=== PATIENT | male | born 1995 | race Caucasian/White ===

== ENCOUNTER 2019-10-17 11:50 | Emergency (ER) | payer BC ==
[~2019-10-17] VITALS: Ht 185.4 cm; Wt 86.4 kg
[2019-10-17 11:59] VITALS: BP 174/71; TEMP 97.4
[2019-10-17 12:14] LABS: COLLECTION METHOD CLEAN CATCH
[2019-10-17 12:29] LABS: ALANINE AMINOTRANSFERASE 24 U/L (4-49); ALBUMIN 5.2 gm/dL (3.5-5.0); ALKALINE PHOSPHATASE 71 U/L (50-136); ANION GAP 10 mmol/L (7-16); AST,SGOT 29 U/L (15-37); BILIRUBIN,TOTAL 1.4 mg/dL (0.0-1.0); BLOOD UREA NITROGEN 10 mg/dL (9-20); CARBON DIOXIDE 28 mmol/L (22-30); CHLORIDE 101 mmol/L (98-107); CREATININE, serum 0.99 (0.66-1.25); GLUCOSE 114 mg/dL (74-106); LIPASE 119 U/L (23-300); POTASSIUM 3.7 mmol/L (3.4-5.0); SODIUM 139 mmol/L (137-145); TOTAL PROTEIN 8.6 gm/dL (6.4-8.2)
[2019-10-17 12:37] LABS: C-REACTIVE PROTEIN < 0.5 mg/dL (0.0-0.9)
[2019-10-17 12:39] LABS: BASO % 0.5 % (0.0-2.0); EOS # 0.3 (0.0-0.7); EOS % 3.9 % (0-4.0); GRAN # 3.9 (1.4-6.5); GRAN % 59.7 % (42.2-75.2); HEMATOCRIT 48.6 % (42.0-52.0); HEMOGLOBIN 17.4 g/dl (13.5-18.0); LYMPH # 1.8 (1.2-3.4); LYMPH % 28.3 % (20.0-51.0); MEAN CELL VOLUME 89 fl (80.0-100.0); MEAN CORPUSCULAR HEMOGLOBIN 32 pg (27.0-31.0); MEAN CORPUSCULAR HGB CONC 36 g/dl (33.0-37.0); MEAN PLATELET VOLUME 9.1 fl (7.4-10.4); MONO # 0.5 (0.1-0.6); MONO % 7.3 % (1.7-9.3); PLATELET COUNT 342 K/mm3 (130-400); RED BLOOD COUNT 5.49 M/mm3 (4.20-5.60); REDCELL DISTRIBUTION WIDTH-CV 11.8 % (11.5-14.5)
[2019-10-17 12:46] LABS: MUCOUS Present /lpf; SQUAMOUS EPITHELIAL 0-2 /hpf; URINE BACTERIA Rare /hpf
[2019-10-17 12:47] LABS: URINE APPEARANCE Clear
[2019-10-17 12:49] LABS: URINE COLOR Red
[2019-10-17] MEDS ORDERED: NORCO 325 MG-51 TAB PO (13:24)
[2019-10-17 13:41] VITALS: PULSE 68
== END 2019-10-17 13:48 | disposition home or self-care (01) ==
LOC: COL.ER 11:50
PROVIDERS: Family Medicine
DX: N20.0 Calculus of kidney (principal)
CPT/HCPCS: J1170; J1885; J2405; J7120

== ENCOUNTER 2020-05-10 15:10 | Emergency (ER) | payer BC ==
[~2020-05-10] VITALS: Ht 188 cm; Wt 88.6 kg
[~2020-05-10 15:10] MED LIST: NORCO 325 MG-51 TAB PO
[2020-05-10 15:32] VITALS: BP 148/105; TEMP 97.9
[2020-05-10 15:36] LABS: COLLECTION METHOD CLEAN CATCH
[2020-05-10 15:52] LABS: MUCOUS Present /lpf; PH 5 (5-8); SQUAMOUS EPITHELIAL 0-2 /hpf; URINE APPEARANCE Clear; URINE BACTERIA None Seen /hpf; URINE BILIRUBIN Negative (NEGATIVE); URINE BLOOD 1+ (NEGATIVE); URINE COLOR Amber; URINE GLUCOSE 1+ (NEGATIVE); URINE KETONE Negative (NEGATIVE); URINE LEUKOCYTE ESTERASE Negative (NEGATIVE); URINE NITRATE Positive (NEGATIVE); URINE PROTEIN(semi-quant) 2+ (NEGATIVE); URINE RBC 20-50 /hpf; URINE UROBILINOGEN >=4.0 mg/dL (NEGATIVE)
[2020-05-10 15:55] LABS: BASO % 0.5 % (0.0-2.0); EOS # 0.2 (0.0-0.7); EOS % 2.5 % (0-4.0); GRAN # 5.2 (1.4-6.5); GRAN % 64.5 % (42.2-75.2); HEMATOCRIT 45.7 % (42.0-52.0); HEMOGLOBIN 16.5 g/dl (13.5-18.0); LYMPH % 24.2 % (20.0-51.0); MEAN CELL VOLUME 87 fl (80.0-100.0); MEAN CORPUSCULAR HEMOGLOBIN 31 pg (27.0-31.0); MEAN CORPUSCULAR HGB CONC 36 g/dl (33.0-37.0); MEAN PLATELET VOLUME 8.5 fl (7.4-10.4); MONO # 0.7 (0.1-0.6); MONO % 8.1 % (1.7-9.3); PLATELET COUNT 332 K/mm3 (130-400); RED BLOOD COUNT 5.25 M/mm3 (4.20-5.60); REDCELL DISTRIBUTION WIDTH-CV 11.3 % (11.5-14.5)
[2020-05-10 16:06] LABS: ALANINE AMINOTRANSFERASE 22 U/L (4-49); ALKALINE PHOSPHATASE 61 U/L (50-136); ANION GAP 9 mmol/L (7-16); AST,SGOT 25 U/L (15-37); BLOOD UREA NITROGEN 12 mg/dL (9-20); CALCIUM 10.1 mg/dL (8.4-10.2); CARBON DIOXIDE 28 mmol/L (22-30); CHLORIDE 102 mmol/L (98-107); CREATININE, serum 1.07 (0.66-1.25); GLUCOSE 107 mg/dL (74-106); LIPASE 78 U/L (23-300); POTASSIUM 4.1 mmol/L (3.4-5.0); SODIUM 139 mmol/L (137-145); TOTAL PROTEIN 8.1 gm/dL (6.4-8.2)
[2020-05-10 16:07] LABS: C-REACTIVE PROTEIN < 0.5 mg/dL (0.0-0.9)
[2020-05-10] MEDS ORDERED: NORCO 325 MG-51 TAB PO (16:35)
[2020-05-10] MEDS ORDERED: ZOFRAN 4MG T4 MG/TAB PO (16:35)
[2020-05-10] MEDS ORDERED: CEPHALEXIN500 M1 PO (16:35)
[2020-05-10 17:28] VITALS: PULSE 86
== END 2020-05-10 17:28 | disposition home or self-care (01) ==
LOC: COL.ER 15:10
PROVIDERS: Emergency Medicine
DX: N13.2 Hydronephrosis with renal and ureteral calculous obstruction (principal); K57.90 Diverticulosis of intestine, part unspecified, without perforation or abscess without bleeding; Z79.1 Long term (current) use of non-steroidal anti-inflammatories (NSAID)
CPT/HCPCS: J1170; J1885; J2405; J3010; J7030; Q9967